=== PATIENT | male | born 1975 | race Asian ===

== ENCOUNTER → 2017-11-14 15:00 | Outpatient (CLI) | payer OTHER, SELFPAY | DX: Z23 Encounter for immunization (principal) | CPT/HCPCS: 90471; 90686 ==

== ENCOUNTER → 2020-12-04 09:26 | Outpatient (CLI) | payer OTHER, SELFPAY ==
--- NOTE | 2020-12-04 09:28 | DI.US.S_ITS ---
PROCEDURE: US ABDOMEN LIMITED INDICATIONS: ABNORMAL LIVER FUNCTION TESTS TECHNIQUE: Real-time focused scanning was performed of the abdomen, with image documentation. COMPARISON: None. FINDINGS: Liver is normal in size and homogeneous in echotexture. Gallbladder is sonographically normal. No gallstones. Gallbladder wall measures 2.0 millimeters. No pericholecystic fluid. No sonographic Randhawa sign. Biliary tree is nondilated. Common hepatic duct measures 3.1 millimeters. IMPRESSION: Liver has normal sonographic appearance. Dictated by: Lacie Johnson MD, PhD on 12/04/2020 at 15:06 Approved by: Lacie Johnson MD, PhD on 12/04/2020 at 15:07
== END ==
PROVIDERS: PCP Nurse Practitioner Family; Referring Provider Internal Medicine Medical Oncology; Visit Provider Internal Medicine Medical Oncology
DX: R79.0 Abnormal level of blood mineral (principal); R79.89 Other specified abnormal findings of blood chemistry
CPT/HCPCS: 76705

== ENCOUNTER 2021-10-12 08:01 | Emergency (ER) | payer OTHER, SELFPAY ==
[2021-10-12] VITALS (8 sets, daily range): BP systolic 110–130; BP diastolic 70–85; PULSE 50–73; RESP 15–17; TEMP 36.5; O2SAT 97–100; BMI 28.7
--- NOTE | 2021-10-12 08:39 | DI.RAD.S_ITS ---
PROCEDURE: XR CHEST 1V INDICATIONS: wheeze TECHNIQUE: One view of the chest was acquired. COMPARISON: None. FINDINGS: Surgical changes and devices: None. Lungs and pleura: Lungs are clear. No pleural effusions or pneumothorax. Mediastinum: Mediastinal contours appear normal. Heart size is normal. Bones and chest wall: No suspicious bony lesions. Overlying soft tissues appear unremarkable. IMPRESSION: No focal infiltrate, pleural effusion or pneumothorax. Dictated by: Triston Becker M.D. on 10/12/2021 at 9:04 Approved by: Triston Becker M.D. on 10/12/2021 at 9:04
[2021-10-12] MEDS: ALBUTEROL/IPRATROPIUM 3 ML AMPUL INH (08:59)
[2021-10-12 09:37] LABS: COVID19 -Nasal RAPID Negative (Negative)
--- NOTE | 2021-10-12 11:12 | ED_ITS ---
HPI - SOB/Dyspnea General Chief Complaint: Shortness of Breath/Dyspnea Stated Complaint: Trouble breathing since last night Time Seen by Provider: 10/12/21 08:39 Source: patient Mode of arrival: Ambulatory Limitations: no limitations History of Present Illness HPI Narrative: This is a 45-year-old male with history of dyslipidemia and tobacco abuse. Patient states last night he felt short of breath. He states it started about an hour after smoking 4 cigarettes. He denies chest pressure or pain. He denies any syncope or lightheadedness. Denies feeling really tight or wheezy but just more short of breath. Patient states he is had a little bit of a cough with productive white sputum chronically. This is not new or changed. Denies any nasal congestion. No upper respiratory symptoms recently. Denies any fevers or chills. No nausea, no vomiting no issues with bowel movements or urination. No new swelling in extremities. Patient has not had similar episodes in the past that he recalls. He states he takes a statin for cholesterol thinks he may have a stress test at least 5 years ago. Denies any surgeries. He smokes approximately half pack per day, will drink at least 1 beer of alcohol daily sometimes an additional shot of to our of hard liquor. He states last night he had a beer as well as 2 shots of hard liquor. Denies recreational drugs or illicit. Family history states he has an uncle who had an HI sometime over the age of 60. Denies any medical issues. Related Data Home Medications Medication Instructions Recorded Confirmed ascorbic acid (vitamin C) 250 mg 250 mg PO DAILY 11/10/20 11/10/20 tablet (Vitamin C) atorvastatin 10 mg tablet 10 mg PO DAILY 11/10/20 11/10/20 carboxymethylcellulose sodium 1 % 1 drp ophthalmic (eye) DAILY 11/10/20 11/10/20 eye liquid gel drops cholecalciferol (vitamin D3) 50 50 mcg DAILY 11/10/20 11/10/20 mcg (2,000 unit) capsule (Vitamin D3) cyclobenzaprine 10 mg tablet 10 mg PO TID 11/10/20 11/10/20 ginkgo biloba 40 mg tablet 40 mg PO DAILY 11/10/20 11/10/20 magnesium oxide 500 mg tablet 500 mg PO DAILY 11/10/20 11/10/20 omeprazole 20 mg capsule,delayed 20 mg PO DAILY 11/10/20 11/10/20 release sildenafil 100 mg tablet (Viagra) 100 mg PO PRN PRN Sexual Activity 11/10/20 11/10/20 valacyclovir 500 mg tablet 500 mg PO DAILY 11/10/20 11/10/20 (Valtrex) Allergies Allergy/AdvReac Type Severity Reaction Status Date / Time aspirin AdvReac Unknown Verified 11/10/20 09:11 Review of Systems Review of Systems ROS Unobtainable: All systems reviewed & are unremarkable except as noted in HPI and below Patient History Social History Smoking Status: Current every day smoker Smoking Status: Current every day smoker tobacco type: cigarettes alcohol intake frequency: 0-2 drinks per day Alcohol type: beer and hard liquor Substance Use Type: does not use Exam Narrative Exam Narrative: GEN: well nourished, well appearing male, alert and oriented x 3, patient ap pears to be in mild distress. HEENT: Atraumatic, pupils are equal round reactive to light, extraocular movements are intact, nares are clear HEART: Regular rate and rhythm without murmur, clicks, rubs. LUNGS:Lungs clear to auscultation, no wheezes, rales, crackles, chest moves symmetrically, no tachypnea or accessory muscle use. Speaks in full sentences. No cough while in the room. ABD:bowel sounds normal, soft, non-tender, no guarding, rebound, rigidity, no masses noted, no hepatosplenomegaly :No CVA tenderness MSCL: Non-tender, no muscle atrophy, muscles strength 5/5 upper and lower ex tremities, full range of motion, normal gait NEURO:CN 2-12 intact, sensation normal Initial Vital Signs Initial Vital Signs: Vital Signs Temperature 97.7 F 10/12/21 08:29 Pulse Rate 73 10/12/21 08:29 Respiratory Rate 16 10/12/21 08:29 Blood Pressure 130/70 10/12/21 08:29 Pulse Oximetry 100 10/12/21 08:29 Oxygen Delivery Method 10/12/21 08:29 Scores HEART Score Heart Score history: Slightly Suspicious Heart Score EKG: Non-Specific repolarization disturbance Heart Score Age: 45-64 years old Heart Score risk factors: 1-2 risk factors Heart Score troponin: < or = to normal limit Heart Score Total: 3 PERC Score Age greater than or equal to 50 years: No Heart rate greater than or equal to 100 bpm: No Room Air O2 Sat less than 95%: No Unilateral leg swelling: No Recent trauma or surgery: No Hemoptysis: No Prior PE or DVT: No Hormone Use: No Total PERC Score: 0 Course Orders Ordered: Discontinued Medications Albuterol/Ipratropium (Albuterol/Ipratropium 3 Ml Ampul) 3 ml INH NOW ONE Stop: 10/12/21 08:45 Last Admin: 10/12/21 08:59 Dose: 3 ml Documented By: Vital Signs Vital signs: Vital Signs - 8 hr 10/12/21 08:29 10/12/21 10:58 10/12/21 10:59 Temperature 97.7 F Pulse Rate 73 58 L 56 L Respiratory Rate 16 16 Blood Pressure 130/70 Pulse Oximetry 100 97 98 Oxygen Delivery Method Room Air 10/12/21 10:59 10/12/21 11:00 10/12/21 11:00 Temperature Pulse Rate 62 Respiratory Rate 16 Blood Pressure 129/85 130/83 Pulse Oximetry 98 Oxygen Delivery Method Room Air MDM - SOB/Dyspnea Lab Data Result diagrams: 10/12/21 11:07 10/12/21 11:07 Labs: Lab Results 10/12/21 10/12/21 10/12/21 Range/Units 09:14 10:23 11:07 WBC 5.7 (4.5-11.0) X10^3/uL RBC 4.15 L (4.5-5.9) X10^6/uL Hgb 14.8 (13.5-17.5) g/dL Hct 41.6 (41-53) % MCV 100.3 H (80-100) fL MCH 35.7 H (26-34) PG MCHC 35.6 (30-36) % RDW 12.0 (11.6-14.8) % Plt Count 168 (150-400) X10^3/uL Neut % (Auto) 54.2 (50-75) % Lymph % (Auto) 34.7 (25-40) % [place] % (Auto) 9.5 (3-14) % Eos % (Auto) 0.9 L (2-4) % Baso % (Auto) 0.7 (0-2) % Neut # (Auto) 3100 (6151-4675) /uL Lymph # (Auto) 2000 (9836-2874) /uL [place] # (Auto) 500 (0-900) /uL Eos # (Auto) 100 (0-450) /uL Baso # (Auto) 0 (0-100) /uL Sodium (137-145) mmol/L Potassium (3.4-5.1) mmol/L Chloride (98-107) mmol/L Carbon Dioxide (22-32) mmol/L BUN (9-20) mg/dL Creatinine (0.66-1.25) mg/dL Estimated GFR (>60) mL/min BUN/Creatinine Ratio (6-22) Glucose (70-100) mg/dL Lactate (0.7-2.1) mmol/L Calcium (8.4-10.2) mg/dL Total Bilirubin (0.2-1.3) mg/dL AST (17-59) IU/L ALT (<50) IU/L Alkaline Phosphatase (38-126) U/L Total Creatine Kinase 71 (55-170) U/L CK-MB (CK-2) TNP CK-MB (CK-2) Rel Index TNP Troponin I < 0.012 (0.01-0.034) ng/mL NT-Pro-B Natriuret Pep 25 (<125) pg/mL Total Protein (6.3-8.2) g/dL Albumin (3.5-5.0) g/dL Globulin (1.7-4.1) g/dL Albumin/Globulin Ratio (1.0-2.8) SARS-CoV-2 (PCR) Negative (Negative) 10/12/21 10/12/21 Range/Units 11:07 11:07 WBC (4.5-11.0) X10^3/uL RBC (4.5-5.9) X10^6/uL Hgb (13.5-17.5) g/dL Hct (41-53) % MCV (80-100) fL MCH (26-34) PG MCHC (30-36) % RDW (11.6-14.8) % Plt Count (150-400) X10^3/uL Neut % (Auto) (50-75) % Lymph % (Auto) (25-40) % [place] % (Auto) (3-14) % Eos % (Auto) (2-4) % Baso % (Auto) (0-2) % Neut # (Auto) (3646-2356) /uL Lymph # (Auto) (7624-5245) /uL [place] # (Auto) (0-900) /uL Eos # (Auto) (0-450) /uL Baso # (Auto) (0-100) /uL Sodium 139 (137-145) mmol/L Potassium 4.0 (3.4-5.1) mmol/L Chloride 105 (98-107) mmol/L Carbon Dioxide 26 (22-32) mmol/L BUN 13 (9-20) mg/dL Creatinine 0.76 (0.66-1.25) mg/dL Estimated GFR > 60 (>60) mL/min BUN/Creatinine Ratio 17.1 (6-22) Glucose 110 H (70-100) mg/dL Lactate 1.5 (0.7-2.1) mmol/L Calcium 8.9 (8.4-10.2) mg/dL Total Bilirubin 0.9 (0.2-1.3) mg/dL AST 35 (17-59) IU/L ALT 54 H (<50) IU/L Alkaline Phosphatase 67 (38-126) U/L Total Creatine Kinase (55-170) U/L CK-MB (CK-2) CK-MB (CK-2) Rel Index Troponin I (0.01-0.034) ng/mL NT-Pro-B Natriuret Pep (<125) pg/mL Total Protein 7.9 (6.3-8.2) g/dL Albumin 4.5 (3.5-5.0) g/dL Globulin 3.4 (1.7-4.1) g/dL Albumin/Globulin Ratio 1.3 (1.0-2.8) SARS-CoV-2 (PCR) (Negative) Imaging Data Chest x-ray: Radiologist's Impression: Elisa Soni??45??M??1975 ? Allergy/Adv: aspirin Close Chest X-Ray (Signed) Triston Becker - 10/12/21 Abdomen Ultrasound (Signed) Lacie Johnson - 12/04/20 Launch?[address] [address] XRay Report Signed Patient: Elisa Soni MR#: [id number] : 1975 Acct:[id number] Age/Sex: 45 / M Date of Service: 10/12/21 Loc: ED Accession Number: [id number] ?? Procedure: XR chest 1V Ordering Provider: Kacey Maki D.O. PROCEDURE:? XR CHEST 1V ? INDICATIONS:? wheeze ? TECHNIQUE:? One view of the chest was acquired.? ? COMPARISON:? None. ? FINDINGS:? ? Surgical changes and devices:? None.? ? Lungs and pleura:? Lungs are clear.? No pleural effusions or pneumothorax.? ? Mediastinum:? Mediastinal contours appear normal.? Heart size is normal.? ? Bones and chest wall:? No suspicious bony lesions.? Overlying soft tissues appear unremarkable.? ? IMPRESSION:? No focal infiltrate, pleural effusion or pneumothorax. ? ? Dictated by: Triston Becker M.D. on 10/12/2021 at 9:04 ? ? Approved by: Triston Becker M.D. on 10/12/2021 at 9:04?? ECG Data Attestation: I personally reviewed and interpreted this ECG as follows: Prior ECG tracings: not available for review Interpretation: Sinus rhythm, rate of 64 FL 176, QRS 88 QTC [address]. No acute ST changes appreciated. No priors available for comparison. MDM Narrative Medical decision making narrative: This is a 45-year-old male with complaint of shortness of breath last night. Patient has had occasional issues he is clear on exam. Has had chronic productive white sputum cough and uses tobacco regularly. EKG and chest x-ray do not show acute changes. Labs including troponin and BNP show no acute change. No acute cardiac, emergent Pulmonary, vascular changes. Patient's heart score is 3, risk factors include dyslipidemia and tobacco abuse. PERC is 0. Discharge Plan Departure Patient Disposition: Home Clinical Impression: Dyspnea, Tobacco abuse Instructions: DI for Shortness of Breath Activity Restrictions/Additional Instructions: I would recommend decreasing or stopping your tobacco abuse. This may be causing or exacerbating your symptoms. Please return for rapidly worsening symptoms increasing or worsening shortness of breath, coughing up blood, new chest pain or pressure, passing out, new swelling in her extremities or other new or concerning symptoms. Prescriptions: No Action cyclobenzaprine [Flexeril] 10 mg Tablet 10 mg PO TID atorvastatin 10 mg Tablet 10 mg PO DAILY valacyclovir [Valtrex] 500 mg Tablet 500 mg PO DAILY sildenafil [Viagra] 100 mg Tablet 100 mg PO PRN PRN (Reason: Sexual Activity) ginkgo biloba 40 mg Tablet 40 mg PO DAILY ascorbic acid (vitamin C) [Vitamin C] 250 mg Tablet 250 mg PO DAILY magnesium oxide 500 mg Tablet 500 mg PO DAILY omeprazole [Prilosec] 20 mg Capsule,Delayed Release(Dr/Ec) 20 mg PO DAILY Refresh 1 % Drops, Liquid Gel 1 drp OPHTHALMIC (EYE) DAILY cholecalciferol (vitamin D3) [Vitamin D3] 50 mcg (2,000 unit) Capsule 50 mcg DAILY Referrals: Catherine Appiah ARNP [Primary Care Provider] - Visit Report Forms: Patient Portal/API
[2021-10-12 11:17] LABS: Add Manual Diff / Slide Review NO; Basophils Absolute Auto 0 /uL (0-100); Basophils Percent Auto 0.7 % (0-2); Eosinophils Absolute Auto 100 /uL (0-450); Eosinophils Percent Auto 0.9 % (2-4); Hematocrit 41.6 % (41-53); Hemoglobin 14.8 g/dL (13.5-17.5); Lymphocytes Absolute Auto 2000 /uL (1100-4500); Lymphocytes Percent Auto 34.7 % (25-40); Mean Corpuscular HGB Conc 35.6 % (30-36); Mean Corpuscular Hemoglobin 35.7 PG (26-34); Mean Corpuscular Volume 100.3 fL (80-100); Monocytes Absolute Auto 500 /uL (0-900); Monocytes Percent Auto 9.5 % (3-14); Neutrophils Absolute Auto 3100 /uL (1500-7000); Neutrophils Percent Auto 54.2 % (50-75); Platelet Count 168 X10^3/uL (150-400); Red Blood Cell Count 4.15 X10^6/uL (4.5-5.9); White Blood Cell Count 5.7 X10^3/uL (4.5-11.0)
[2021-10-12 11:30] LABS: Lactate (Lactic Acid) 1.5 mmol/L (0.7-2.1)
[2021-10-12 11:32] LABS: Alanine Aminotransferase 54 IU/L (<50); Albumin 4.5 g/dL (3.5-5.0); Albumin Globulin Ratio 1.3 (1.0-2.8); Alkaline Phosphatase 67 U/L (38-126); Aspartate Aminotransferase 35 IU/L (17-59); BUN Creatinine Ratio 17.1 (6-22); Bilirubin Total 0.9 mg/dL (0.2-1.3); Blood Urea Nitrogen 13 mg/dL (9-20); Calcium 8.9 mg/dL (8.4-10.2); Carbon Dioxide 26 mmol/L (22-32); Chloride 105 mmol/L (98-107); Estimated Glomerular Filt Rate > 60 mL/min (>60); Globulin 3.4 g/dL (1.7-4.1); Glucose 110 mg/dL (70-100); HEMOLYSIS < 15 (0-50); Sodium 139 mmol/L (137-145); Total Protein 7.9 g/dL (6.3-8.2)
[2021-10-12 12:30] LABS: Creatine Kinase 71 U/L (55-170)
[2021-10-12 12:45] LABS: NT-proBNP (BNP-Adult 18+) 25 pg/mL (<125); Troponin I < 0.012 ng/mL (0.01-0.034)
== END 2021-10-12 13:19 | disposition home or self-care (01) ==
PROVIDERS: Emergency Provider Emergency Medicine; PCP Nurse Practitioner Family
DX: R06.00 Dyspnea, unspecified (principal); Z72.0 Tobacco use; Z20.822 Contact with and (suspected) exposure to COVID-19
CPT/HCPCS: 36415; 71045; 80053; 82550; 83605; 83880; 84484; 85025; 87635; 93005; 93010; 99284; C9803

== ENCOUNTER → 2024-02-08 07:26 | Outpatient (CLI) | payer OTHER, SELFPAY ==
--- NOTE | 2024-02-08 | DI.NM.S_ITS ---
PROCEDURE: NM EXERCISE TREADMILL NON NUC COMPARISON: None INDICATIONS: Chest pain FINDINGS: Rest ECG sinus rhythm 58 bpm. Yandel protocol 12:53, maximum heart rate 170 bpm (100% peak predicted), peak blood pressure 161/72, 14.8 METS, JACKY -20%. Exercise ECG sinus tachycardia, no ST segment changes or arrhythmia. The patient did not report exercise-induced chest discomfort. IMPRESSION: Low risk study. No evidence of exercise-induced ischemia or arrhythmia. Normal hemodynamic response. Very good exercise capacity. Dictated by: Citlaly Coughlin D.O. on 02/08/2024 at 16:24 Approved by: Citlaly Coughlin D.O. on 02/08/2024 at 16:26
== END ==
PROVIDERS: Referring Provider Internal Medicine; Visit Provider Internal Medicine
DX: R07.89 Other chest pain (principal)
CPT/HCPCS: 93017

== ENCOUNTER → 2024-04-26 14:45 | Outpatient (CLI) | payer OTHER, SELFPAY ==
--- NOTE | 2024-04-26 14:47 | DI.ECHO.S_ITS ---
[facility] : : [address] : : [place] : : [id number] : : Phone: [phone] Echocardiogram Report + + :Name: HENRY WALLS Study Date: 04/26/2024 Height: 63 in : :[facility] ReadingLocation: Weight: 155 lb : : Gender: Male BSA: 1.7 m2 : :: 1975 Age: 48 yrs BP: 121/85 mmHg: :Reason For Study: CHEST PAIN : :Ordering Physician: LESLI BECKER Performed By: Paul Wheeler : :Referring: LESLI BECKER : + + Interpretation Summary 1. The left ventricular contractility is borderline. Estimate ejection fraction is 50 to 55% with no segmental wall motion abnormalities. Mild concentric LVH. Impaired relaxation. 2. The right ventricular contractility is normal. 3. All cardiac chambers are of normal size. 4. Trace to mild aortic insufficiency. 5. No obvious intracardiac shunts. 6. No obvious intracardiac masses nor thrombi. 7. No hemodynamically significant pericardial effusion. 8. Low right-sided filling pressures. 9. Mildly dilated aortic root and ascending thoracic aorta without obvious dissection. Conclusion: Low normal left ventricular systolic function with no significant valvular abnormalities. Procedure: A two-dimensional transthoracic echocardiogram with color flow and Doppler was performed. The study quality was technically good. There is no prior echocardiogram noted for this patient. The patient was in normal sinus rhythm during the exam. Left Ventricle: The left ventricle is normal in size. Left ventricular wall thickness is mildly increased. There is no ventricular septal defect visualized. The ejection fraction is estimated to be 50-55%. There are no focal wall motion abnormalities. Diastolic parameters suggest a relaxation abnormality of the left ventricle, consistent with probable normal filling pressures. Right Ventricle: The right ventricle is normal in size and function. Atria: The left atrial size is normal. Right atrial size is normal. There is no Doppler evidence for an atrial septal defect. Mitral Valve: The mitral valve leaflets appear normal. There is no evidence of stenosis, fluttering, or prolapse. There is trace mitral regurgitation. Aortic Valve: The aortic valve is trileaflet. The aortic valve opens well. There is mild aortic regurgitation. Tricuspid Valve: The tricuspid valve leaflets are thin and pliable. There is trace tricuspid regurgitation. Pulmonic Valve: The pulmonic valve leaflets are thin and pliable; valve motion is normal. There is trace pulmonic regurgitation. Great Vessels: The aortic root is mildly dilated. The ascending aorta is mildly enlarged. The pulmonary artery is normal size. The IVC is of normal diameter and collapses greater than 50% with a sniff. This suggests a low right atrial pressure of 3 mm Hg. Pericardium/ Pleura There is no pericardial effusion. There is no pleural effusion. MMode/2D Measurements & Calculations LVIDd: 4.1 cm LVOT diam: 2.0 cm LVIDs: 2.9 cm Ao root diam: 4.2 cm FS: 28.5 % asc Aorta Diam: 4.4 cm EPSS: 1.0 cm Ao Arch Diam (Prox Trans): 2.7 cm IVSd: 1.1 cm LVPWd: 1.2 cm LV perales. diameter/BSA (cm/m^2): 2.4 LV sys. diameter/BSA (cm/m^2): 1.7 LA A2 area: 17.5 cm2 RA long axis: 5.2 cm LA A4 area: 13.9 cm2 RA area: 14.4 cm2 LA length (vol): 4.7 cm RA vol: 33.9 ml LA vol: 44.1 ml RA : 19.5 ml/m2 LA vol index: 25.4 ml/m2 IVC diam: 1.4 cm RVD1 (basal): 3.7 cm RVD2 (mid): 3.1 cm TAPSE: 2.1 cm Doppler Measurements & Calculations Ao V2 max: 142.7 cm/sec LVOT Max Dayne: 112.0 cm/sec Ao V2 mean: 90.5 cm/sec LV V1 max P.0 mmHg Ao max P.1 mmHg LV V1 VTI: 23.1 cm Ao mean P.9 mmHg MISSY(I,D): 3.0 cm2 Ao V2 VTI: 24.1 cm MISSY(V,D): 2.4 cm2 sev ratio: 0.96 MISSY indexed to BSA (cm^2/m^2): 1.7 MV E max dayne: 63.7 cm/sec PA V2 max: 94.2 cm/sec MV A max dayne: 71.3 cm/sec PA V2 mean: 62.8 cm/sec MV E/A: 0.89 PA mean P.8 mmHg Med Peak E' Dayne: 5.4 cm/sec PA pr(Accel): -1.5 mmHg E/E' med: 11.7 Lat Peak E' Dayne: 7.7 cm/sec E/E' lat: 8.2 E/e' average: 10.0 MV dec time: 0.20 sec SVLVOT): 71.4 ml Reading Physician:HOMER
== END ==
PROVIDERS: Referring Provider Internal Medicine; Visit Provider Internal Medicine
DX: I77.810 Thoracic aortic ectasia (principal); R07.89 Other chest pain; I77.89 Other specified disorders of arteries and arterioles
CPT/HCPCS: 93306

== ENCOUNTER → 2024-07-05 09:37 | Outpatient (CLI) | payer OTHER, SELFPAY ==
--- NOTE | 2024-07-05 09:39 | DI.CT.S_ITS ---
PROCEDURE: CT CHEST WO CON INDICATIONS: Aneurysm of ascending aorta without rupture TECHNIQUE: Noncontrast 5 mm thick sections acquired from the pulmonary apices to the posterior costophrenic angles. 1 mm lung window, 5 mm thick coronal and sagittal and 7 mm axial MIP reformats were then acquired. For radiation dose reduction, the following was used: automated exposure control, adjustment of mA and/or kV according to patient size. COMPARISON: None. FINDINGS: Image quality: Diagnostic. Lower Neck: No enlarged lymph nodes. Thyroid: No thyroid nodules which require sonographic follow up, per consensus guidelines. Axillae: No enlarged lymph nodes. Chest Wall: Unremarkable. Bones: Unremarkable. Lungs and Pleura: No pneumothorax or pleural effusions. No consolidation or suspicious nodules. Heart: Heart size is normal. No pericardial effusion. Thoracic Vessels: Borderline aneurysmal dilatation of the ascending aorta, measuring 4.1 cm in maximum diameter. Arch aorta and descending thoracic aorta are of normal caliber. Mediastinum and Megan: No enlarged lymph nodes. Esophagus: No wall thickening. No hiatal hernia. Upper Abdomen: Visualized upper abdomen solid organs and bowel loops appear normal. IMPRESSION: Mild aneurysmal dilatation of the ascending aorta, measuring up to 4.1 cm in diameter. No acute pulmonary process. Dictated by: Gordy Connolly M.D. on 07/06/2024 at 12:34 Approved by: Gordy Connolly M.D. on 07/06/2024 at 12:37
== END ==
LOC: CT 09:38
PROVIDERS: Referring Provider Internal Medicine; Visit Provider Internal Medicine
DX: I71.21 Aneurysm of the ascending aorta, without rupture (principal)
CPT/HCPCS: 71250